=== PATIENT | male | born 1970 | race Caucasian/White ===

== ENCOUNTER 2017-04-07 17:34 | Emergency (ER) | payer OTHER, BC ==
[~2017-04-07] VITALS: Ht 180.3 cm; Wt 114.3 kg
[~2017-04-07 17:34] MED LIST: GLCSC750600 PO; VITAMIN D PO
[2017-04-07 17:38] VITALS: TEMP 36.9; Ht 180.3 cm; Wt 114.3 kg
--- NOTE | 2017-04-07 18:22 | DIAGNOSTIC IMAGING REPORT ---
LEFT SHOULDER 4 VIEWS CLINICAL HISTORY: Left shoulder injury. FINDINGS: 4 views of left shoulder are obtained. No prior studies are available for comparison at the time of dictation. The skeletal structures are well mineralized. No fracture or dislocation is seen. The glenohumeral and acromioclavicular joints appear preserved. The overlying soft tissues are within normal limits. There is elevation of the left hemidiaphragm with left basilar atelectasis. IMPRESSION: No fracture or dislocation is seen in the left shoulder. Electronically signed by: Bryan Banda M.D. 04/07/2017 6:21 PM Dictated Date/Time: 04/07/2017 6:20 PM
[2017-04-07] MEDS ORDERED: MULT-513 PO (18:36)
[2017-04-07] MEDS ORDERED: GLUCTAB7 PO (18:36)
[2017-04-07] MEDS ORDERED: OMEG10007 PO (18:36)
[2017-04-07] MEDS ORDERED: PRED20TA2 PO (18:48)
[2017-04-07] MEDS ORDERED: HYDR-5688 PO (18:48)
[2017-04-07 19:10] VITALS: BP 145/104; PULSE 85; O2SAT 96
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
== END 2017-04-07 19:10 | disposition home or self-care (01) ==
LOC: C.EDB 17:34 → C.EDD 19:10
DX: S49.92XA Unspecified injury of left shoulder and upper arm, initial encounter (principal); Y99.0 Civilian activity done for income or pay; X50.0XXA Overexertion from strenuous movement or load, initial encounter; Z79.899 Other long term (current) drug therapy